=== PATIENT | male | born 1990 | race Caucasian/White ===

== ENCOUNTER 2020-09-26 15:27 | Emergency (ER) | payer BC ==
[~2020-09-26] VITALS: Ht 177.8 cm; Wt 75.3 kg
--- NOTE | 2020-09-26 15:45 | Emergency Room Report ---
History of Present Illness General Chief Complaint: Laceration Present Illness HPI 30-year-old male presents to the emergency department complaining of 5 out of 10 severity pain, laceration and some mild bleeding to the right index finger x1 day. Patient reports that he was cleaning a paring knife when his hand slipped and he accidentally cut himself. He denies taking blood thinning medications. He denies suspicion of foreign body. He denies paresthesias or loss of gross motor movement of the affected extremity. Patient is right-hand dominant. Allergies: Coded Allergies: No Known Allergies (Unverified , 09/26/20) COVID-19 Screening Contact w/high risk pt: No Experienced COVID-19 symptoms?: No COVID-19 Testing performed EMBROIDERER: No COVID-19 Screening: Negative COVID-19 COVID-19 Testing Source: Received Covid vaccine Patient History Past Medical History: see triage record Past Surgical History: none Pertinent Family History: none Reviewed Nursing Documentation: PMH: Agreed; PSxH: Agreed Review of Systems All Other Systems: negative except mentioned in HPI Physical Exam Vital Signs Date Time Temp Pulse Resp B/P (MAP) Pulse Ox O2 Delivery O2 Flow Rate FiO2 09/26/20 15:31 98.6 76 16 155/60 (91) 100 Room Air Sp02 EP Interpretation: reviewed, normal General Appearance: no apparent distress, alert, GCS 15, non-toxic Head: normocephalic, atraumatic Eyes: bilateral eye normal inspection, bilateral eye PERRL ENT: hearing grossly normal, normal voice Neck: full range of motion Respiratory: lungs clear, normal breath sounds, speaking full sentences Cardiovascular #1: regular rate, rhythm, normal capillary refill Musculoskeletal: normal range of motion - even against resistance of the right index finger, gait/station normal, non-tender Neurologic: alert, motor strength/tone normal, oriented x3, sensory intact, responsive, speech normal, grossly normal Psychiatric: judgement/insight normal Skin: laceration - Flap laceration to the lateral portion of right index finger just distal to the PIP joint, approx 1 cm in length Procedures Laceration/Wound Repair Laceration/Wound Repair : Consent: Verbal Wound Location: upper extremity - Right index finger Wound's Depth, Shape: flap Wound Length (cm): 1 Wound Explored: clean Irrigated w/ Saline (ccs): 200 Betadine Prep?: Yes Anesthesia: other - 2% lidocaine Volume Anesthetic (ccs): 3 Wound Repaired With: sutures Suture Size/Type: 4:0 Number of Sutures: 3 Layer Closure?: No Sterile Dressing Applied?: Yes Splint Applied?: Yes Type of Splint Applied: RIght index finger splint Sling Applied?: No Patient Tolerated: Well Complications: None Medical Decision Making PA Attestation Dr. Rahman Is my supervising Physician whom patient management has been discussed with. Diagnostic Impression: Primary Impression: Laceration ER Course 30-year-old male presents to the emergency department complaining of 5 out of 10 severity pain, laceration and some mild bleeding to the right index finger x1 day. Patient reports that he was cleaning a paring knife when his hand slipped and he accidentally cut himself. He denies taking blood thinning medications. He denies suspicion of foreign body. He denies paresthesias or loss of gross motor movement of the affected extremity. Patient is right-hand dominant. Ddx considered but are not limited to laceration, tendon injury, cellulitis, amputation Vital signs: are WNL, pt. is afebrile H&PE are most consistent with: Flap laceration to the lateral portion of right index finger just distal to the PIP joint, approx 1 cm in length ORDERS: none required at this time, the diagnosis is clinical ED INTERVENTIONS: -Tetanus vaccine was administered as pt. vaccination status was unknown. - The wound was copiously irrigated with normal saline, and explored for foreign body for which no FB was found. NO tendon involvement. - pt. is anesthetized with 2%lidocaine plain. - The wound was approximated and closed using 3 interrupted 4.0Prolene sutures. -Bacitracin and sterile dressing is applied. Discussed with patient: That we make every effort to approximate the laceration as best as we can so that scarring will be as cosmetically pleasing as possible with our limited cosmetic skill set in the Emergency dept. Regardless of our best efforts there will be scarring after laceration repair. The extent of scarring is unknown at this time. DISCHARGE: At this time pt. is stable for d/c to home. Will provide printed patient care instructions, and any necessary prescriptions. Care plan and follow up instructions have been discussed with the patient prior to discharge. Last Vital Signs Date Time Temp Pulse Resp B/P (MAP) Pulse Ox O2 Delivery O2 Flow Rate FiO2 09/26/20 15:31 98.6 76 16 155/60 (91) 100 Room Air Status: improved Disposition: HOME, SELF-CARE Condition: Stable Scripts Bacitracin (Bacitracin) 28.4 Gm Oint...g. 1 APPLIC TOPIC BID, #28 GM Prov: Elise Galvan 09/26/20 Cephalexin* (KEFLEX*) 500 Mg Capsule 500 MG ORAL EVERY 12 HOURS for 7 Days, #14 CAP 0 Refills Prov: Elise Galvan 09/26/20 Referrals: Rikki Thomason Comp. [facility] Patient Instructions: Laceration Care, Adult Additional Instructions: Take medications as directed. Sutures are to be removed in 10 to 14 dayskeep area clean and dry.. Follow up with a Primary Care Provider in 3-5 days, even if your symptoms have resolved. --Please review list of primary care clinics, if you do not already have a primary care provider Return sooner to ED if new symptoms occur, or current symptoms become worse. - Please note that this Emergency Department Report was dictated using [employer] booth operator technology software, occasionally this can lead to erroneous entry secondary to interpretation by the dictation equipment. Elise Galvan Sep 26, 2020 15:45
[2020-09-26] MEDS ORDERED: Tetanus/Diptheria/Pertussis IM ONE (16:00)
[2020-09-26] MEDS ORDERED: Lidocaine 2% MPF 5ml Vial INJ ONE (16:00)
--- NOTE | 2020-09-26 16:30 | NUR ---
sutures to laceration done applied bacitracin and dressing applied ,finger splint applied discharged home with instruction and rx follow up with pmd
--- NOTE | 2020-09-26 16:30 | NUR ---
laceration irrigfated with saline kings sung at bedside with patient
[2020-09-26] MEDS ORDERED: CEPHALEXIN500 MG ORAL (16:43)
[2020-09-26] MEDS ORDERED: BACITRACIN15 GM TOPIC (16:43)
[2020-09-26] MEDS ORDERED: Bacitracin Oint UD TOPIC ONE (16:48)
[2020-09-26 16:59] VITALS: BP 155/60
== END 2020-09-26 17:03 | disposition home or self-care (01) ==
LOC: EMR 15:47
DX: S61.210A Laceration without foreign body of right index finger without damage to nail, initial encounter (principal); W26.0XXA Contact with knife, initial encounter; Y92.9 Unspecified place or not applicable; Z23 Encounter for immunization
CPT/HCPCS: 90471; 90715; 99283